=== PATIENT | female | born 1985 | race Caucasian/White ===

== ENCOUNTER → 2019-02-17 10:04 | Outpatient (CLI) | payer OTHER, SELFPAY ==
[2019-02-17 09:42] VITALS: BMI 32.8
[2019-02-17 14:28] LABS: Absolute Lymphocyte Count 1.37 X10^3/uL (0.83-4.51); Absolute Neutrophil Count 2.1 X10^3/uL (2.0-7.7); Basophil# 0.05 X10^3/uL; Basophil% 1.3 % (0-1); Eosinophil# 0.07 X10^3/uL; Eosinophils% 1.8 % (0-5); Hematocrit 40.7 % (37-47); Hemoglobin 13.6 g/dL (12.0-15.0); Lymphocyte # 1.37 X10^3/ul (4.0); Lymphocyte % 34.6 % (19-41); Mean Corp Hgb Conc 33.4 g/dL (32-36); Mean Corpuscular Hgb 31.6 pg (27.0-32.0); Mean Corpuscular Volume 94.7 fL (81-99); Mean Platelet Vol. 9.7 fl (6.2-12.0); Monocyte# 0.36 X10^3/uL; Monocyte% 9.1 % (0-10); NRBC Flagged by Analyzer 0 % (0-5); Neutrophil % 52.9 % (47-70); Platelet Count 251 K/mm3 (150-450); RBC Distribution Width CV 12.8 % (11.6-14.6); RBC Distribution Width SD 44.5 fl (35.1-43.9)
[2019-02-17 14:51] LABS: Hemoglobin A1c 5.2 % (4.2-6.3)
[2019-02-17 15:05] LABS: ALB/GLOB Ratio 1.1 RATIO (0.9-2.4); AST(SGOT) 21 U/L (15-37); Alanine Aminotransfer ALT/SGPT 35 U/L (13-56); Alkaline Phosphatase 38 U/L (45-117); Anion Gap 8 (5-15); BUN 13 mg/dL (7-18); Chloride 106 mmol/L (98-107); Creatinine, Serum 0.76 mg/dL (0.55-1.02); EST Glomerular Filtration Rate 92 mL/min (>60); Est Glom Filt Rate - Afr Amer 111 mL/min (>60); Globulin 3.7 g/dL (2.2-4.2); Glucose 97 mg/dL (74-106); Protein, Total 7.7 g/dL (6.4-8.2); Sodium Level 139 mmol/L (136-145); T4 Free Direct 0.89 ng/dL (0.76-1.46)
[2019-02-25 21:34] LABS: T3 Reverse 13.6 ng/dL (9.2-24.1)
== END ==
PROVIDERS: Visit Provider Internal Medicine
DX: E11.9 Type 2 diabetes mellitus without complications (principal); E03.9 Hypothyroidism, unspecified
CPT/HCPCS: 36415; 80053; 83036; 84439; 84443; 84482; 85025

== ENCOUNTER → 2019-02-19 12:33 | Outpatient (CLI) | payer OTHER, SELFPAY ==
[2019-02-17 09:42] VITALS: BMI 32.8
== END ==
PROVIDERS: Family Provider Internal Medicine; PCP Internal Medicine; Referring Provider Internal Medicine; Visit Provider Internal Medicine
DX: K62.89 Other specified diseases of anus and rectum (principal); R10.9 Unspecified abdominal pain
CPT/HCPCS: 82274

== ENCOUNTER → 2019-04-05 16:36 | Outpatient (CLI) | payer OTHER, SELFPAY ==
[2019-02-17 09:42] VITALS: BMI 32.8
[2019-04-05 18:24] LABS: Thyroid Stim Hormone (TSH) 3.42 uIU/mL (0.358-3.74)
== END ==
PROVIDERS: Family Provider Internal Medicine; PCP Internal Medicine; Referring Provider Internal Medicine; Visit Provider Internal Medicine
DX: E03.9 Hypothyroidism, unspecified (principal)
CPT/HCPCS: 36415; 84443

== ENCOUNTER → 2019-05-20 09:59 | Outpatient (CLI) | payer OTHER, SELFPAY ==
[2019-05-17 08:49] VITALS: BMI 33.8
--- NOTE | 2019-05-20 10:00 | RAD_ITS ---
STUDY: X-RAY - ESOPHAGUS (BARIUM SWALLOW) WITH FLUOROSCOPY REASON FOR EXAM: Female, 34 years old. DYSPHAGIA X1 YEAR WITH PILLS -- 13 FLUORO IMAGES, 42 FLUORO SEC, 18.66mGy TECHNIQUE: 13 view(s) of the esophagus were obtained following swallowing of barium. FLUOROSCOPY TIME (if supplied): (0:42) minutes/seconds COMPARISON: None. FINDINGS: There is no demonstrated esophageal foreign body. There is no demonstrated stricture or mucosal abnormality. Normal gastroesophageal junction, without a demonstrated hiatal hernia. The patient ingested a 12 mm tablet of barium without any difficulty Normal visualized aortic arch and descending thoracic aorta. Normal visualized pulmonary parenchyma. Normal visualized osseous structures of the thorax. RAD/Esophagus Only IMPRESSION: Normal plain film x-ray examination (barium swallow) of the esophagus. Electronically Signed: Humble Zhang, at 11:22 EST , Service support ,
== END ==
PROVIDERS: PCP Internal Medicine; Referring Provider Internal Medicine; Visit Provider Internal Medicine
DX: R19.8 Other specified symptoms and signs involving the digestive system and abdomen (principal)
CPT/HCPCS: 74220

== ENCOUNTER → 2019-08-12 | Outpatient (CLI) | payer OTHER, SELFPAY ==
[2019-08-11 11:32] VITALS: BMI 32.9
[2019-08-12 13:14] LABS: Vitamin B12 755 pg/mL (211-911); Vitamin D,25 Hydroxy 33.2 ng/mL
[2019-08-12 13:19] LABS: T4 Free Direct 1.22 ng/dL (0.76-1.46); Thyroid Stim Hormone (TSH) 0.65 uIU/mL (0.358-3.74)
== END | disposition home or self-care (01) ==
LOC: LABSPEC 12:14
PROVIDERS: PCP Internal Medicine; Referring Provider Internal Medicine Endocrinology, Diabetes & Metabolism; Visit Provider Internal Medicine Endocrinology, Diabetes & Metabolism
DX: E03.8 Other specified hypothyroidism (principal); E06.3 Autoimmune thyroiditis; K90.9 Intestinal malabsorption, unspecified; E55.9 Vitamin D deficiency, unspecified
CPT/HCPCS: 82306; 82607; 84439; 84443

== ENCOUNTER 2023-02-24 12:20 | Emergency (ER) | payer OTHER, SELFPAY ==
[2023-02-24 12:22] VITALS: BP 156/101; PULSE 84; RESP 16; TEMP 36.6; O2SAT 99; BMI 38.1
--- NOTE | 2023-02-24 12:25 | EKG12_ITS ---
Test Reason : CP Blood Pressure : / mmHG Vent. Rate : 089 BPM Atrial Rate : 089 BPM P-R Int : 140 ms QRS Dur : 086 ms QT Int : 356 ms P-R-T Axes : 032 019 024 degrees QTc Int : 433 ms Normal sinus rhythm Normal ECG Confirmed by CRICKET HIGGINS, KRYSTA ([id number]), dictionary editor GEOVANY VITAL ([id number]) on 02/26/2023 6:48:18 AM Referred By: Confirmed By:KRYSTA HARLEY MD
[2023-02-24 12:44] LABS: Absolute Lymphocyte Count 1.72 X10^3/uL (0.83-4.51); Absolute Neutrophil Count 3.4 X10^3/uL (2.0-7.7); Basophil# 0.05 X10^3/uL; Basophil% 0.9 % (0-1); Eosinophil# 0.05 X10^3/uL; Eosinophils% 0.9 % (0-5); Hematocrit 41.6 % (37-47); Hemoglobin 14.9 g/dL (12.0-15.0); Lymphocyte # 1.72 X10^3/ul (0.83-4.51); Lymphocyte % 30.1 % (19-41); Mean Corp Hgb Conc 35.8 g/dL (32-36); Mean Corpuscular Hgb 31.5 pg (27.0-32.0); Mean Corpuscular Volume 87.9 fL (81-99); Mean Platelet Vol. 9.2 fl (6.2-12.0); Monocyte# 0.49 X10^3/uL; Monocyte% 8.6 % (0-10); NRBC Flagged by Analyzer 0 % (0-5); Neutrophil # 3.38 X10^3/uL (2.7-7.7); Neutrophil % 59.1 % (47-70); Platelet Count 288 K/mm3 (150-450); RBC Distribution Width CV 12.1 % (11.6-14.6); RBC Distribution Width SD 39.3 fl (35.1-43.9); Red Blood Count 4.73 M/mm3 (4.2-5.4); White Blood Count 5.7 K/mm3 (4.4-11.0)
--- NOTE | 2023-02-24 12:45 | RAD_ITS ---
STUDY: X-RAY CHEST REASON FOR EXAM: Female, 38 years old. Chest pain TECHNIQUE: Single AP portable view of the chest. COMPARISON: None. FINDINGS: The lungs are clear and expanded. There is no demonstrated pleural abnormality. Normal size heart. Normal mediastinum and ash. Normal visualized pulmonary arteries. Normal visualized aortic arch and descending thoracic aorta. Normal visualized thoracic spine. Normal visualized ribs, clavicles, and shoulders. There is no demonstrated abnormality of the visualized soft tissue structures of the upper abdomen. RAD/Chest 1 View (Portable) IMPRESSION: Normal x-ray examination of the chest. Electronically Signed: Humble Zhang MD at 13:10 EDT ,
[2023-02-24 13:03] LABS: Anion Gap 6 (5-15); BUN 10 mg/dL (7-18); BUN/Creat Ratio 14.4 RATIO (10-20); Calcium,Total 9.3 mg/dL (8.5-10.1); Chloride 107 mmol/L (98-107); Creatinine, Serum 0.69 mg/dL (0.55-1.02); EST Glomerular Filtration Rate 101 mL/min (>60); Est Glom Filt Rate - Afr Amer 122 mL/min (>60); Estimated Creatinine Clearance 99.47 ml/min; Glucose 126 mg/dL (74-106); Potassium 3.8 mmol/L (3.5-5.1); Sodium Level 138 mmol/L (136-145); Troponin-I HS (w/2H Reflex) 10 pg/mL (3.0-54.0)
[2023-02-24 13:20] VITALS: BP 140/96; PULSE 90; RESP 20; O2SAT 97
--- NOTE | 2023-02-24 13:25 | EX.ED.DYSGE1 ---
HPI <LISBET Santiago - Last Filed: 02/24/23 14:35> History of Present Illness Chief Complaint: Chest Pain Narrative Narrative: Patient is a 38-year-old female with history of gluten allergy, hypothyroidism who presents to the emergency department for 1 day of epigastric pain, nausea and vomiting. Patient states she went out to dinner last evening at approximately 7 PM. After eating, she had pain to her epigastric area, she then had 1 episode of vomiting. Pain states the pain continued today, she is having intermittent waves of nausea, feeling of excess saliva. Patient states that she googled and she was concerned she was having a heart attack. She is here for evaluation. She denies any heart history. PFSH <LISBET Santiago - Last Filed: 02/24/23 14:35> PFSH Medical History (Updated 02/24/23 @ 15:[address] Rios Fournier, DO) Bone fracture Diabetes Gallstones Gastrointestinal complaints Hypothyroid Vitamin deficiency Home Medications levothyroxine 150 mcg tablet 150 mcg PO DAILY #90 tabs 06/15/19 [Rx Last Taken Unknown] omeprazole 40 mg capsule,delayed release 40 mg PO DAILY #30 caps 02/24/23 [Rx Last Taken Unknown] ondansetron 4 mg disintegrating tablet 4 mg PO Q8H PRN PRN Nausea #10 tabs 02/24/23 [Rx Last Taken Unknown] Allergy/AdvReac Type Severity Reaction Status Date / Time Sulfa (Sulfonamide Allergy Severe Hives Verified 02/24/23 12:24 Antibiotics) gluten Allergy Intermediate Stomach Verified 02/24/23 12:24 Issues Family History Grandmother Arthritis Grandfather Myocardial infarction Surgical History History of cholecystectomy Social History (Updated 06/15/19 @ 16:[address] Ricky Saravia MD) Smoking Status: Never smoker alcohol intake: current alcohol intake frequency: holidays/special occasions only Alcohol type: wine and other substance use type: does not use what type of physical activity do you participate in: running and weight training frequency: 3-4 times per week ROS <LISBET Santiago - Last Filed: 02/24/23 14:35> ROS ED ROS Narrative Constitutional: Negative for fever, chills, weight loss, weakness Eyes: Negative for vision loss, vision change, double vision ENT: Negative for any sore throat, ear pain, congestion Cardiovascular: Negative for any chest pain, tightness, palpitations. Her epigastric chest pain Respiratory: Negative for any cough, sputum production, hemoptysis, dyspnea, dyspnea on exertion, orthopnea Gastrointestinal: Negative for any abdominal pain, diarrhea, constipation, blood in stool, blood in vomit. Positive for epigastric pain, nausea and vomiting : Negative for any urinary frequency, dysuria, retention, blood in urine Muscle skeletal: Negative for any muscle joint pain, stiffness, myalgias, arthralgias, neck pain, back pain Neurological: Negative for any headache, syncope, numbness or tingling, dizziness Skin: Negative for any rashes, lumps, itching, abrasions, lacerations Psychiatric: Negative for any depression, anxiety, stress, suicidal ideation, homicidal ideation Hematologic: Negative for any easy bruising, excessive bruising, easy bleeding Allergies: Negative for any eczema, hives, rash EXAM <LISBET Santiago - Last Filed: 02/24/23 14:35> Physical Exam Narrative Exam Narrative: Vital signs reviewed. HEET: Head normocephalic atraumatic, TMs clear bilaterally. Posterior pharynx is clear, moist mucous membranes. Nares clear bilaterally. Neck: Supple with no lymphadenopathy or tenderness. No signs of meningismus, negative jolt sign. Cardiac: Regular rate and rhythm no murmurs gallops or rubs, equal peripheral pulses bilaterally. Respiratory: Lungs clear to auscultation bilaterally. No chest tenderness. Abdomen: Soft, nontender, nondistended. No abdominal bruit or pulsatile masses. No hepatosplenomegaly. Negative for any Amanda sign, negative for any pain at McBurney's point. Extremities: No peripheral edema, no signs of gross trauma or deformity. Active full range of motion of all extremities. Neuro: Cranial nerves II through XII intact, no focal neurological deficits. Skin: Clean dry and intact with no rash, purpura, petechiae, vesicles or pustules. Backs/flank: No CVA tenderness, no midline spinal tenderness, no deformity. Psych: Normal mood and affect. No SI, HI or acute psychosis. Const Vital Signs: 02/24/23 12:22 02/24/23 12:25 02/24/23 13:18 Temperature 98 F Temperature Source Temporal Pulse Rate 84 Respiratory Rate 16 Respiratory Effort Normal Blood Pressure 156/101 H Blood Pressure Mean 119 Pulse Ox 99 Oxygen Delivery Method Room Air Room Air 02/24/23 13:20 Temperature Temperature Source Pulse Rate 90 Respiratory Rate 20 H Respiratory Effort Blood Pressure 140/96 H Blood Pressure Mean 110 Pulse Ox 97 Oxygen Delivery Method Room Air <Dr. Rios Fournier DO - Last Filed: 02/24/23 15:13> Physical Exam Const Vital Signs: 02/24/23 12:22 02/24/23 12:25 02/24/23 13:18 Temperature 98 F Temperature Source Temporal Pulse Rate 84 Respiratory Rate 16 Respiratory Effort Normal Blood Pressure 156/101 H Blood Pressure Mean 119 Pulse Ox 99 Oxygen Delivery Method Room Air Room Air 02/24/23 13:20 Temperature Temperature Source Pulse Rate 90 Respiratory Rate 20 H Respiratory Effort Blood Pressure 140/96 H Blood Pressure Mean 110 Pulse Ox 97 Oxygen Delivery Method Room Air MDM <LISBET Santiago - Last Filed: 02/24/23 14:35> [facility] Lab Data Labs: Laboratory Results - last 24 hr 02/24/23 12:37 WBC 5.7 RBC 4.73 Hgb 14.9 Hct 41.6 MCV 87.9 MCH 31.5 MCHC 35.8 RDW Std Deviation 39.3 RDW Coeff of Ilda 12.1 Plt Count 288 MPV 9.2 Immature Gran % (Auto) 0.400 Neut % (Auto) 59.1 Lymph % (Auto) 30.1 Stanly % (Auto) 8.6 Eos % (Auto) 0.9 Baso % (Auto) 0.9 Absolute Neuts (auto) 3.4 Absolute Lymphs (auto) 1.72 Nucleated RBC % 0 Sodium 138 Potassium 3.8 Chloride 107 Carbon Dioxide 25.0 Anion Gap 6 BUN 10 Creatinine 0.69 Estim Creat Clear Calc 99.47 Est GFR (MDRD) Af Amer 122 Est GFR (MDRD) Non-Af 101 BUN/Creatinine Ratio 14.4 Glucose 126 H Calcium 9.3 Total Bilirubin 0.80 Direct Bilirubin 0.19 AST 18 ALT 37 Alkaline Phosphatase 55 Troponin I High Sens 10 Total Protein 8.1 Albumin 4.1 Globulin 4.0 Lipase 29 Radiography Diagnostic Testing: Clinical Impression(s) from Imaging Studies Chest X-Ray 02/24/23 12:45 IMPRESSION: Normal x-ray examination of the chest. Electronically Signed: Humble Zhang MD at 13:10 EDT , EKG Normal sinus rhythm: Attestation: I personally reviewed and interpreted this EKG as follows: Interpretation: Sinus Rhythm Comments: Normal sinus rhythm, rate of 89 bpm, MI 140 ms, QRS duration 86 ms, no acute ST elevation, no acute infarct noted. Treatment and Re-Evaluation :: Patient appears generally well, patient appears nontoxic, vital signs are stable. Presenting to the emergency department with epigastric pain that started last evening. Patient did have 2 episodes of nausea and vomiting. Still nauseous today. Patient's chest x-ray that was interpreted by the ER physician shows a normal examination of the chest. Patient did receive a full cardiac work-up concerning for any ACS or ND. Laboratory values showed a normal CBC, patient's BMP was unremarkable, troponin was negative at 10. Liver panel, lipase will be added. Patient be given a GI cocktail as well as IV Toradol. EKG was unremarkable. Differential diagnosis includes ACS, ND, pneumonia, GERD, acute cholecystitis. Patient did have some relief of symptoms with GI cocktail, Toradol. Patient's laboratory values showed a normal high sensory troponin, there is no evidence suspect any ACS or ND. CBC was unremarkable, BMP was unremarkable, liver and lipase were unremarkable. At this time, do not believe that this is cardiac related. Believe the patient is having more of a GERD/gastritis problem. Patient will be started on a PPI, will also be given a couple days of Zofran. She will decrease her spicy foods. She will decrease her ibuprofen usage. She will follow-up outpatient. All questions were answered, patient will return for any worsening symptoms. <Dr. Rios Fournier, DO - Last Filed: 02/24/23 15:13> [facility] Narrative Medical decision making narrative: I have personally performed a face to face assessment of the patient and have reviewed the MICHELLE Note. I performed a substantive portion of the visit including all aspects of the following. My simmons findings include: History: Patient presents with chest pain that began last night. Patient states the pain is over the lower substernal area. Patient states it radiates into her back. Patient denies any shortness of breath. Patient admits to nausea and vomiting but denies any hematemesis or coffee-ground emesis. Patient denies any cough. Patient denies any fevers or chills. Exam: Vital signs are stable. Patient is afebrile. Patient is in no acute distress. Oral mucosa is pink and moist. Neck is supple. Trachea is midline. There is no JVD. Heart was regular rate and rhythm. Lungs are clear and equal bilaterally. Abdomen is soft. Bowel sounds are normal. There is no tenderness. Cranial nerves II through XII are intact. There are no focal motor or sensory deficits noted. Medical Decision Making: Differential diagnosis includes cardiac dysrhythmia, cardiac ischemia, GERD, gastritis, pancreatitis, pneumonia, pneumothorax, musculoskeletal pain, and anxiety. EKG will be obtained to assess for cardiac dysrhythmia and cardiac ischemia. Chest x-ray will be obtained to assess for pneumonia and pneumothorax. CBC will be obtained to assess for leukocytosis and anemia. Basic metabolic profile will be obtained to assess for electrolyte abnormality and renal function. Hepatic profile will be obtained to assess for hepatic function. Lipase will be obtained to assess for pancreatitis. High-sensitivity troponin will be obtained to assess for cardiac ischemia. EKG was obtained. On my independent interpretation, there is normal sinus rhythm with a rate of 89. There are no acute ST or T wave changes noted. Portable 1 view chest x-ray was obtained. On my independent interpretation, lung white are clear. There is normal cardiac silhouette. Bony thorax is normal. There is no acute process noted. Radiologist also interpreted the x-ray and agrees. CBC was reviewed and was within normal limits. Basic metabolic profile was reviewed and was within normal limits. Hepatic profile was and was within normal limits. Lipase was reviewed and was normal. High-sensitivity troponin was reviewed and was normal. Patient was advised of her findings. Patient is feeling better on reevaluation. Patient has a HEART score of 1. Patient was advised that this is low risk for acute cardiac event. Patient was instructed to follow-up with her primary care physician in 5 to 7 days. Patient was instructed return if worse in any way. Patient understood and was agreeable with the plan. All questions were answered. Lab Data Labs: Laboratory Results - last 24 hr 02/24/23 12:37 WBC 5.7 RBC 4.73 Hgb 14.9 Hct 41.6 MCV 87.9 MCH 31.5 MCHC 35.8 RDW Std Deviation 39.3 RDW Coeff of Ilda 12.1 Plt Count 288 MPV 9.2 Immature Gran % (Auto) 0.400 Neut % (Auto) 59.1 Lymph % (Auto) 30.1 Stanly % (Auto) 8.6 Eos % (Auto) 0.9 Baso % (Auto) 0.9 Absolute Neuts (auto) 3.4 Absolute Lymphs (auto) 1.72 Nucleated RBC % 0 Sodium 138 Potassium 3.8 Chloride 107 Carbon Dioxide 25.0 Anion Gap 6 BUN 10 Creatinine 0.69 Estim Creat Clear Calc 99.47 Est GFR (MDRD) Af Amer 122 Est GFR (MDRD) Non-Af 101 BUN/Creatinine Ratio 14.4 Glucose 126 H Calcium 9.3 Total Bilirubin 0.80 Direct Bilirubin 0.19 AST 18 ALT 37 Alkaline Phosphatase 55 Troponin I High Sens 10 Total Protein 8.1 Albumin 4.1 Globulin 4.0 Lipase 29 Radiography Diagnostic Testing: Clinical Impression(s) from Imaging Studies Chest X-Ray 02/24/23 12:45 IMPRESSION: Normal x-ray examination of the chest. Electronically Signed: Humble Zhang MD at 13:10 EDT Reading Location ID and State: [address] [place] [address] , Service support , Discharge Plan Triage Chief Complaint: Chest Pain ED Midlevel Provider: Axel Ng ED Provider: Rios Fournier Dx/Rx/DC Orders Clinical Impression: Gastritis, Acute epigastric pain, Diabetes, Chest pain Instructions: ED Gastritis (Adult), ED Chest Pain, Uncertain Cause Prescriptions: No Action levothyroxine 150 mcg tablet 150 mcg PO DAILY Qty: 90 3RF Stand Alone Forms: Work / School Excuse Primary Care Provider: NAKIA BATES Referrals: NOT,DEFINED [Non-Staff] - Disposition Disposition: Home, Self Care Discharge Date/Time: 02/24/23 14:59
[2023-02-24] MEDS: Ketorolac 15 MG/ML Vial IV (13:37)
[2023-02-24] MEDS: Mag Hydrox/Al Hydrox/Simeth 30 ML UDC PO (13:37)
[2023-02-24] MEDS: Ondansetron 4 MG/2 ML Vial IV (13:37)
[2023-02-24 13:39] LABS: Lipase 29 U/L (13-75)
[2023-02-24 13:51] LABS: AST(SGOT) 18 U/L (15-37); Alanine Aminotransfer ALT/SGPT 37 U/L (13-56); Albumin, Serum 4.1 g/dL (3.2-5.0); Alkaline Phosphatase 55 U/L (45-117); Bilirubin, Direct 0.19 mg/dL (0.00-0.30); Protein, Total 8.1 g/dL (6.4-8.2)
[2023-02-24 14:41] LABS: Reflex Troponin-HS? (from REC) Y
[2023-02-24 14:56] VITALS: BP 124/63; PULSE 78; RESP 16; O2SAT 99
== END 2023-02-24 14:59 | disposition home or self-care (01) ==
PROVIDERS: Nurse Practitioner; Emergency Provider Emergency Medicine; Visit Provider Emergency Medicine
DX: K29.70 Gastritis, unspecified, without bleeding (principal); E11.9 Type 2 diabetes mellitus without complications; R07.9 Chest pain, unspecified; E03.9 Hypothyroidism, unspecified; Z79.899 Other long term (current) drug therapy
CPT/HCPCS: 71045; 80048; 80076; 83690; 84484; 85025; 93005; 96374; 96375; 99284; A4216; J2405

== ENCOUNTER → 2024-11-04 | Outpatient (CLI) | payer OTHER, SELFPAY | END | disposition home or self-care (01) | LOC: SL 20:10 | DX: G47.9 Sleep disorder, unspecified (principal); F09 Unspecified mental disorder due to known physiological condition; R47.89 Other speech disturbances; R06.83 Snoring | CPT/HCPCS: 95810 ==